=== PATIENT | male | born 1995 | race Caucasian/White ===

== ENCOUNTER 2017-02-28 21:22 | Emergency (ER) | payer OTHER ==
[~2017-02-28] VITALS: Ht 167.6 cm; Wt 87.1 kg
--- NOTE | 2017-02-28 21:50 | PHYS DOC ---
Adult General Chief Complaint Chief Complaint: UPPER EXTREMITY INJURY [facility] HPI Patient is a 21 year old male presents to the emergency department with complaints of left anterior shoulder pain. 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 He states he had onset of pain and points to the deltoid muscle. He denies loss of range of motion. Review of Systems Review of Systems Constitutional: Denies fever or chills [] Eyes: Denies change in visual acuity, redness, or eye pain [] HENT: Denies nasal congestion or sore throat [] Respiratory: Denies cough or shortness of breath [] Cardiovascular: No additional information not addressed in HPI [] GI: Denies abdominal pain, nausea, vomiting, bloody stools or diarrhea [] : Denies dysuria or hematuria [] Musculoskeletal: Left upper extremity pain Integument: Denies rash or skin lesions [] Neurologic: Denies headache, focal weakness or sensory changes [] Endocrine: Denies polyuria or polydipsia [] Physical Exam Physical Exam Constitutional: Well developed, well nourished, no acute distress, non-toxic appearance. [] HENT: Normocephalic, atraumatic, bilateral external ears normal, oropharynx moist, no oral exudates, nose normal. [] Neck: Normal range of motion, no tenderness, supple, no stridor. [] Cardiovascular:Heart rate regular rhythm, no murmur [] Lungs & Thorax: Bilateral breath sounds clear to auscultation [] Abdomen: Bowel sounds normal, soft, no tenderness, no masses, no pulsatile masses. [] Extremities: Upper extremity: Mild tenderness over the deltoid anteriorly. Full range of motion of the left shoulder, left elbow without increased pain or difficulty. Neurovascular intact distally. His muscle strength is 5 over 5. Neurologic: Alert and oriented X 3, normal motor function, normal sensory function, no focal deficits noted. [] EKG EKG [] Radiology/Procedures Radiology/Procedures [] Course & Med Decision Making Course & Med Decision Making Pertinent Labs and Imaging studies reviewed. (See chart for details) []She was placed in a sling for comfort. He is advised to use ice. Ibuprofen [id number] as labeled and is indicated for symptom management. He is to follow-up with workman's comp physician tomorrow. Dragon Disclaimer Chloe Disclaimer This electronic medical record was generated, in whole or in part, using a voice recognition dictation system. Departure Departure Impression: Primary Impression: Strain of deltoid muscle Disposition: HOME, SELF-CARE Condition: STABLE Patient Instructions: Muscle Strain Additional Instructions: [facility] as directed by your service and repair supervisor. Please follow-up on Wednesday, March 01. Ice to the affected area. Ibuprofen [id number] as labeled and is indicated for symptom management. Wear the sling as directed until follow-up and further evaluation by [facility] physician. Problem Qualifiers Primary Impression: Strain of deltoid muscle Encounter type: initial encounter Laterality: left Qualified Codes: S46.812A - Strain of other muscles, fascia and tendons at shoulder and upper arm level, left arm, initial encounter SAM ROLDAN APRN Feb 28, 2017 21:50
[2017-02-28 21:51] VITALS: BP 114/71
== END 2017-02-28 22:20 | disposition home or self-care (01) ==
LOC: ER 21:22
DX: S46.812A Strain of other muscles, fascia and tendons at shoulder and upper arm level, left arm, initial encounter (principal); W01.0XXA Fall on same level from slipping, tripping and stumbling without subsequent striking against object, initial encounter; Y93.89 Activity, other specified; Y99.8 Other external cause status; Y92.89 Other specified places as the place of occurrence of the external cause
CPT/HCPCS: 99282